=== PATIENT | male | born 1985 | race American Indian/Alaskan Native ===

== ENCOUNTER 2019-07-09 05:34 | Emergency (ER) | payer SELFPAY ==
[2019-07-09 06:14] VITALS: BP 105/73
--- NOTE | 2019-07-09 06:37 | Emergency Department Report ---
ED General Adult HPI - General Chief complaint: Pain General Stated complaint: FEELING SICK Time Seen by Provider: 07/09/19 06:32 Source: patient Mode of arrival: Ambulatory Limitations: No Limitations - History of Present Illness Initial comments: Patient is a 33-year-old male that presents emergency room with complaints of feeling sick 2 days. Patient states he has had this for about a week and a half and has been seen in 2 other hospitals for the same symptoms. Patient is also complaining of lightheadedness and near syncope. Patient denies nausea vomiting. Patient states the symptoms are intermittent. Patient complains of bilateral arm pain at times. Patient states his pain is 10 out of 10. Patient states pain is better with rest. Patient states his pain is worse with exertion. Patient denies nausea vomiting. Patient denies shortness of breath. Patient denies chest pain. -: Sudden, week(s) Location: upper extremity Radiation: non-radiation Severity scale (0 -10): 10 Quality: aching Consistency: intermittent Improves with: rest Worsens with: movement Associated Symptoms: malaise, weakness. denies: confusion, chest pain, cough, diaphoresis, fever/chills, headaches, loss of appetite, nausea/vomiting, rash, seizure, shortness of breath, syncope Treatments Prior to Arrival: none - Related Data Allergies Allergy/AdvReac Type Severity Reaction Status Date / Time shrimp Allergy Rash Verified 07/09/19 06:41 ED Review of Systems ROS: Stated complaint: FEELING SICK Other details as noted in HPI Constitutional: malaise, weakness. denies: chills, fever Eyes: denies: eye pain, eye discharge, vision change ENT: denies: ear pain, throat pain Respiratory: denies: cough, shortness of breath, wheezing Cardiovascular: denies: chest pain, palpitations Endocrine: no symptoms reported Gastrointestinal: denies: abdominal pain, nausea, diarrhea Genitourinary: denies: urgency, dysuria Musculoskeletal: denies: back pain, joint swelling, arthralgia Skin: denies: rash, lesions Neurological: weakness. denies: headache, paresthesias Psychiatric: denies: anxiety, depression Hematological/Lymphatic: denies: easy bleeding, easy bruising ED Past Medical Hx - Past Medical History Previous Medical History?: Yes Hx Asthma: Yes - Surgical History Past Surgical History?: No - Family History Family history: no significant - Social History Smoking Status: Former Smoker Substance Use Type: None ED Physical Exam - General Limitations: No Limitations General appearance: alert, in no apparent distress - Head Head exam: Present: atraumatic, normocephalic - Eye Eye exam: Present: normal appearance, PERRL Pupils: Present: normal accommodation - ENT ENT exam: Present: mucous membranes moist - Neck Neck exam: Present: normal inspection - Respiratory Respiratory exam: Present: normal lung sounds bilaterally. Absent: respiratory distress, wheezes, rales - Cardiovascular Cardiovascular Exam: Present: regular rate, normal rhythm. Absent: systolic murmur, diastolic murmur, rubs, gallop - GI/Abdominal GI/Abdominal exam: Present: soft, normal bowel sounds - Rectal Rectal exam: Present: deferred - Extremities Exam Extremities exam: Present: normal inspection - Back Exam Back exam: Present: normal inspection - Neurological Exam Neurological exam: Present: alert, oriented X3 - Psychiatric Psychiatric exam: Present: normal affect, normal mood - Skin Skin exam: Present: warm, dry, intact, normal color. Absent: rash ED Course Vital Signs 07/09/19 07/09/19 05:51 06:12 Temperature 97.7 F 98.5 F Pulse Rate 61 55 L Respiratory 16 16 Rate Blood Pressure 128/87 105/73 [Right] O2 Sat by Pulse 98 99 Oximetry - Reevaluation(s) Reevaluation #1: Evaluation done. I discussed with patient the need to follow-up with a primary care and outpatient specialists in order to manage his instead of continuing to go from ER to ER. Patient voiced understanding. No chest pain with deep breath. 07/09/19 06:32 Reevaluation #2: I went to the room discussed the results with patient and the patient has eloped. All patient's belongings are gone. 07/09/19 09:17 ED Medical Decision Making - Lab Data Result diagrams: 07/09/19 06:52 07/09/19 06:52 - EKG Data -: EKG Interpreted by Me EKG shows normal: sinus rhythm, axis, intervals, QRS complexes, ST-T waves Rate: normal - Radiology Data Radiology results: report reviewed, image reviewed CT HEAD WITHOUT CONTRAST INDICATION : MAIN: near syncope, lighthead TECH NOTE: PATIENT COMPLAINES OF HEAD HURTING X 2 DAYS. TECHNIQUE: Axial imaging performed from the skull apex through the skull base without the use of contrast. All CT scans at this location are performed using CT dose reduction employed for ALARA by means of automated exposure control. COMPARISON: None FINDINGS: Parenchyma: No acute intracranial hemorrhage or parenchymal abnormality. Ventricles: Ventricles are normal in size and appear symmetric. Soft tissues: Soft tissues including the orbits appear normal. Bones: No acute osseous abnormality. Sinuses: Sinuses and mastoid air cells are clear. IMPRESSION: Normal head CT. - Medical Decision Making She is a 33-year-old male presents emergency room with near-syncope and lighthe adedness. Patient had been seen a few other ERs for the same complaints. Patient has never followed up with a primary care. During initial exam patient was instructed to follow-up with the primary care outpatient specialist for further evaluation. Asians evaluation done here. When I went to the room to discuss the results with the patient, the patient had a low. Patient left the hospital. Patient's CT of the head negative. Patient's EKG essentially unremarkable. - Differential Diagnosis lightheadedness. Dizziness. Dehydration. Myalgia. Critical care attestation.: If time is entered above; I have spent that time in minutes in the direct care of this critically ill patient, excluding procedure time. ED Disposition Clinical Impression: Lightheadedness, Near syncope, Myalgia, Elevated CK Arm pain Qualifiers: Laterality: bilateral Qualified Code(s): M79.601 - Pain in right arm Disposition: Z-07 ELOPED Is pt being admited?: No Does the pt Need Aspirin: No Condition: Undetermined Referrals: PRIMARY CARE [Primary Care Provider] - 3-5 Days Time of Disposition: 09:18
[2019-07-09 07:06] LABS: Hematocrit 40.2 % (35.5-45.6); Hemoglobin 13.2 gm/dl (11.8-15.2); Mean Corpuscular HGB Conc 33 % (32-34); Mean Corpuscular Volume 84 fl (84-94); Platelet Count 191 K/mm3 (140-440); Red Blood Count 4.82 M/mm3 (3.65-5.03); Red Cell Distribution Width 14.9 % (13.2-15.2)
[2019-07-09 07:39] LABS: Alanine Aminotransferase 12 units/L (7-56); BUN/Creatinine Ratio 23; Blood Urea Nitrogen 16 mg/dL (9-20); Calcium 9.2 mg/dL (8.4-10.2); Hemolysis Index 5
--- NOTE | 2019-07-09 08:10 | Cat Scan Report ---
CT HEAD WITHOUT CONTRAST INDICATION : MAIN: near syncope, lighthead TECH NOTE: PATIENT COMPLAINES OF HEAD HURTING X 2 DAYS. TECHNIQUE: Axial imaging performed from the skull apex through the skull base without the use of con trast. All CT scans at this location are performed using CT dose reduction employed for SHENA by anjali miguel of automated exposure control. COMPARISON: None FINDINGS: Parenchyma: No acute intracranial hemorrhage or parenchymal abnormality. Ventricles: Ventricles are normal in size and appear symmetric. Soft tissues: Soft tissues including the orbits appear normal. Bones: No acute osseous abnormality. Sinuses: Sinuses and mastoid air cells are clear. IMPRESSION: Normal head CT. Signer Name: Lorenzo Medrano MD Signed: 07/09/2019 8:05 AM Workstation Name: [id number]
[2019-07-09] MEDS ORDERED: NACL 0.9% 1000 ML 1,000 ML IV ONE (09:01)
[2019-07-09 09:37] LABS: Amphetamine Screen,Urine PRESUMPTIVE NEGATIVE; Benzodiazepines Screen,Urine PRESUMPTIVE NEGATIVE; Cocaine Screen,Urine PRESUMPTIVE NEGATIVE; Methadone Screen,Urine PRESUMPTIVE NEGATIVE; Opiate Screen,Urine PRESUMPTIVE NEGATIVE
[2019-07-09 09:41] LABS: Bilirubin,Urine NEG (Negative); Blood,Urine NEG (Negative); Color,Urine Yellow (Yellow); Mucus,Urine 3+ /HPF; Protein,Urine <15 mg/dL mg/dL (Negative)
[2019-07-09 09:44] LABS: RBC,Urine < 1.0 /HPF (0.0-6.0)
[2019-07-09 09:56] LABS: Cannabinoid Screen,Urine PRESUMPTIVE POSITIVE
== END 2019-07-09 09:52 | disposition left against medical advice (07) ==
LOC: ED 05:34
DX: R55 Syncope and collapse (principal); R42 Dizziness and giddiness; M79.601 Pain in right arm; J45.909 Unspecified asthma, uncomplicated; Z87.891 Personal history of nicotine dependence
CPT/HCPCS: 36415; 70450; 80053; 80307; 81001; 82550; 85027; 93005; 93010; 99284

== ENCOUNTER 2019-07-11 23:17 | Emergency (ER) | payer SELFPAY ==
[2019-07-12 03:05] VITALS: BP 123/67
[2019-07-12] MEDS ORDERED: NACL 0.9% 1000 ML 1,000 ML IV ONE (07:32)
[2019-07-12] MEDS ORDERED: REGLAN IV ONE (07:32)
[2019-07-12] MEDS ORDERED: TORADOL IV ONE (07:32)
[2019-07-12] MEDS ORDERED: BENADRYL IV ONE (07:32)
--- NOTE | 2019-07-12 07:41 | Emergency Department Report ---
ED Headache HPI - General Chief Complaint: Headache Stated Complaint: HEADACHE/BODY WEAKNESS Time Seen by Provider: 07/12/19 07:31 - History of Present Illness Initial Comments: This is a 33-year-old male nontoxic, well nourished in appearance, no acute signs of distress presents to the ED with c/o of acute headache, dizziness, and body aches x1 day. Patient stated had a near syncope episode as he felt that he was going to pass out but denies any syncopal episode. Patient describes headache as diffuse with level of 8 out of 10. Patient denies thunderclap headache. Patient denies any radiation of pain. Patient denies any head trauma. Patient denies any visual changes. Patient denies worse headache. Patient stated that darkness makes headache better and bright lights make the headache worse. Patient denies any numbness, tingling, fever, chills, nausea, vomiting, chest pain, shortness of breath, stiff neck. Patient denies facial drooping or one sided weakness. Patient denies any radiation of pain. Patient denies any allergies. Timing/Duration: 24 hours Quality: mild Head Injury Location: other (diffuse) Recent Head Trauma: no recent headache/trauma Associated Symptoms: denies symptoms. denies: confusion, fatigue, facial pain, fever/chills, flushing, loss of consciousness, nausea/vomiting, nasal congestion, nasal drainage, numbness in legs/feet, rash, seizures, sinus infe ction, stiff neck, vision changes, weakness Allergies/Adverse Reactions: Allergies shrimp Allergy (Verified 07/09/19 06:41) Rash Home Medications: Ambulatory Orders Butalb/Acetaminophen/Caffeine [Fioricet 50-300-40 mg CAP] 1 cap PO Q6HR PRN #12 cap 07/12/19 ED Review of Systems ROS: Stated complaint: HEADACHE/BODY WEAKNESS Other details as noted in HPI Constitutional: denies: chills, fever Eyes: denies: eye pain, eye discharge, vision change ENT: denies: ear pain, throat pain Respiratory: denies: cough, shortness of breath, wheezing Cardiovascular: denies: chest pain, palpitations Endocrine: no symptoms reported Gastrointestinal: denies: abdominal pain, nausea, diarrhea Genitourinary: denies: urgency, dysuria Musculoskeletal: denies: back pain, joint swelling, arthralgia Skin: denies: rash, lesions Neurological: headache. denies: weakness, paresthesias Psychiatric: denies: anxiety, depression Hematological/Lymphatic: denies: easy bleeding, easy bruising ED Past Medical Hx - Past Medical History Previous Medical History?: Yes Hx Psychiatric Treatment: Yes Hx Asthma: Yes - Surgical History Past Surgical History?: No - Social History Smoking Status: Never Smoker - Medications Home Medications: Home Medications Medication Instructions Recorded Confirmed Last Taken Type Butalb/Acetaminophen/Caffeine 1 cap PO Q6HR PRN #12 cap 07/12/19 Unknown Rx [Fioricet 50-300-40 mg CAP] ED Physical Exam - General Limitations: No Limitations General appearance: alert, in no apparent distress - Head Head exam: Present: atraumatic, normocephalic - Eye Eye exam: Present: normal appearance, PERRL, EOMI - Neck Neck exam: Present: normal inspection, full ROM. Absent: tenderness, meningismus, lymphadenopathy - Respiratory Respiratory exam: Present: normal lung sounds bilaterally. Absent: respiratory distress, wheezes, rales, rhonchi, stridor, chest wall tenderness, accessory muscle use, decreased breath sounds, prolonged expiratory - Cardiovascular Cardiovascular Exam: Present: regular rate, normal rhythm, normal heart sounds. Absent: bradycardia, tachycardia, irregular rhythm, systolic murmur, diastolic murmur, rubs, gallop - GI/Abdominal GI/Abdominal exam: Present: soft, normal bowel sounds. Absent: distended, tenderness, guarding, rebound, rigid, diminished bowel sounds - Rectal Rectal exam: Present: deferred - Extremities Exam Extremities exam: Present: normal inspection, full ROM, normal capillary refill. Absent: tenderness - Back Exam Back exam: Present: normal inspection, full ROM. Absent: tenderness, CVA tenderness (R), CVA tenderness (L), muscle spasm, paraspinal tenderness, vertebral tenderness, rash noted - Neurological Exam Neurological exam: Present: alert, oriented X3, normal gait - Expanded Neurological Exam Expanded Patient oriented to: Present: person, place, time Cranial nerves: EOM's Intact: Normal, Facial Sensation: Normal Cerebellar function: Finger to Nose: Normal Upper motor neuron: Pronator Drift: Normal, Sensory Extinction: Normal Motor strength exam: RUE: 5, LUE: 5, RLE: 5, LLE: 5 Best Eye Response (Rebecca): (4) open spontaneously Best Motor Response (Rebecca): (6) obeys commands Best Verbal Response (Rebecca): (5) oriented Rebecca Total: 15 - Psychiatric Psychiatric exam: Present: normal affect, normal mood - Skin Skin exam: Present: warm, dry, intact, normal color. Absent: rash ED Course Vital Signs 07/12/19 03:02 Temperature 97.8 F Pulse Rate 60 Respiratory 20 Rate Blood Pressure 123/67 O2 Sat by Pulse 100 Oximetry - Reevaluation(s) Reevaluation #1: 07/12/19 07:39 Patient is speaking in full sentences with no signs of distress noted. ED Medical Decision Making - Lab Data Result diagrams: 07/12/19 09:06 07/12/19 09:39 - Medical Decision Making This is a 33-year-old male that presents with headache. Patient is stable and was examined by me. Patient is neurologically stable. There is no stiff neck or neck pain. Vital signs are stable. Patient is afebrile. Labs unremarkable. CT of head has been obtained and dictated by the radiologist unremarkable. Patient is notified of the CT results with no questions noted by the patient. Patient received Benadryl, Reglan, Toradol, and 1 L of normal saline which the patient stated that headache has subsided and resolved. Patient was instructed not to operate any machinery after discharged due to drowsiness of Benadryl. Patient stated that a family member will drive patient home. Patient is discharged with Fioricet. Patient was referred to Follow-up with a primary care/neurologist doctor in 3-5 days or if symptoms worsen and continue return to emergency room as soon as possible. At time of discharge, the patient does not seem toxic or ill in appearance. No acute signs of distress noted. Patient agrees to discharge treatment plan of care. No further questions noted by the patient. Critical care attestation.: If time is entered above; I have spent that time in minutes in the direct care of this critically ill patient, excluding procedure time. ED Disposition Clinical Impression: Dizziness, Near syncope Headache Qualifiers: Headache type: unspecified Headache chronicity pattern: episodic headache Intractability: not intractable Qualified Code(s): R51 - Headache Disposition: DC-01 TO HOME OR SELFCARE Is pt being admited?: No Does the pt Need Aspirin: No Condition: Stable Instructions: Acute Headache (ED), Near Syncope (ED) Additional Instructions: Follow-up with a primary care doctor in 3-5 days or if symptoms worsen and continue return to emergency room as soon as possible. Prescriptions: Butalb/Acetaminophen/Caffeine [Fioricet 50-300-40 mg CAP] 1 cap PO Q6HR PRN #12 cap PRN Reason: Pain , Severe (7-10) Referrals: PRIMARY CARE, [Primary Care Provider] - 3-5 Days GERARDO BRAUN MD [Staff Physician] - 3-5 Days [facility] [Outside] - 3-5 Days [facility] [Outside] - 3-5 Days Forms: Work/School Release Form(ED)
--- NOTE | 2019-07-12 08:26 | Cat Scan Report ---
CT head without contrast INDICATION : Headache with syncope TECHNIQUE: Axial imaging performed from the skull apex through the skull base without the use of con trast. All CT examinations performed at this facility utilize dose modulation, iterative reconstruct ion or weight-based dosing, when appropriate, to reduce radiation dose to as low as reasonably achiev able. COMPARISON: None FINDINGS: No acute intracranial hemorrhage or parenchymal abnormality. Ventricles are normal in si ze and appear symmetric. Soft tissues including the orbits appear normal. No acute osseous abnorm ality. Sinuses and mastoid air cells are clear. IMPRESSION: No acute intracranial abnormality. Signer Name: Marcos Sandoval MD Signed: 07/12/2019 8:22 AM Workstation Name: [id number]
[2019-07-12 09:00] LABS: BUN/Creatinine Ratio 13; Blood Urea Nitrogen 8 mg/dL (9-20); Hemolysis Index 299
[2019-07-12 09:17] LABS: Eosinophils # (Auto) 0.1 K/mm3 (0.0-0.4); Eosinophils % (Auto) 3.1 % (0.0-4.3); Hematocrit 40.8 % (35.5-45.6); Hemoglobin 13.6 gm/dl (11.8-15.2); Lymphocytes # (Auto) 1.4 K/mm3 (1.2-5.4); Lymphocytes % (Auto) 36.3 % (13.4-35.0); Mean Corpuscular HGB Conc 33 % (32-34); Mean Corpuscular Volume 85 fl (84-94); Monocytes # (Auto) 0.6 K/mm3 (0.0-0.8); Monocytes % (Auto) 14.5 % (0.0-7.3); Platelet Count 199 K/mm3 (140-440); Red Blood Count 4.83 M/mm3 (3.65-5.03); Red Cell Distribution Width 15.1 % (13.2-15.2)
== END 2019-07-12 10:55 | disposition home or self-care (01) ==
LOC: ED 23:17
DX: R42 Dizziness and giddiness (principal); R55 Syncope and collapse; R51 Headache; J45.909 Unspecified asthma, uncomplicated; Z91.013 Allergy to seafood
CPT/HCPCS: 36415; 70450; 80048; 84132; 85025; 96361; 96374; 96375; 99284; J1200; J1885; J2765; J7030

== ENCOUNTER 2019-07-16 23:59 | Emergency (ER) | payer SELFPAY ==
[2019-07-17 08:44] VITALS: BP 121/69
--- NOTE | 2019-07-17 08:55 | Emergency Department Report ---
ED General Adult HPI - General Chief complaint: Dizziness Stated complaint: DIZZINESS,LIGHT HEADED, BODY WEAKNESS Time Seen by Provider: 07/17/19 07:45 Source: patient Mode of arrival: Ambulatory Limitations: No Limitations - History of Present Illness Initial comments: 34-year-old [place] male department complaining of a few day history of waxing and waning dizziness and lightheadedness. States that he was at home and the room where they were burning some incense and after that had occurred. The sensations had begun. Stated that this was also associated with some heart fluttering and nausea. Denies any chest pain or any syncope reports no hemoptysis, hematemesis or hematochezia, no fever, chills, sweats. Radiation: non-radiation Consistency: constant Improves with: none Worsens with: none Associated Symptoms: denies: chest pain, cough, diaphoresis, malaise, nausea/vomiting, shortness of breath, syncope, weakness Treatments Prior to Arrival: none - Related Data Previous Rx's Medication Instructions Recorded Last Taken Type Butalb/Acetaminophen/Caffeine 1 cap PO Q6HR PRN #12 cap 07/12/19 Unknown Rx [Fioricet 50-300-40 mg CAP] Allergies Allergy/AdvReac Type Severity Reaction Status Date / Time shrimp Allergy Rash Verified 07/09/19 06:41 ED Review of Systems ROS: Stated complaint: DIZZINESS,LIGHT HEADED, BODY WEAKNESS Other details as noted in HPI Comment: All other systems reviewed and negative ED Past Medical Hx - Past Medical History Previous Medical History?: Yes Hx Psychiatric Treatment: Yes (Bipolar) Hx Asthma: Yes - Surgical History Past Surgical History?: No - Social History Smoking Status: Never Smoker Substance Use Type: None - Medications Home Medications: Home Medications Medication Instructions Recorded Confirmed Last Taken Type Butalb/Acetaminophen/Caffeine 1 cap PO Q6HR PRN #12 cap 07/12/19 Unknown Rx [Fioricet 50-300-40 mg CAP] ED Physical Exam - General Limitations: No Limitations General appearance: alert, in no apparent distress - Head Head exam: Present: atraumatic, normocephalic - Eye Eye exam: Present: normal appearance, PERRL, EOMI Pupils: Present: normal accommodation - ENT ENT exam: Present: normal exam, normal orophraynx, mucous membranes moist, TM's normal bilaterally - Neck Neck exam: Present: normal inspection - Respiratory Respiratory exam: Present: normal lung sounds bilaterally. Absent: respiratory distress - Cardiovascular Cardiovascular Exam: Present: regular rate, normal rhythm. Absent: systolic murmur, diastolic murmur, rubs, gallop - GI/Abdominal GI/Abdominal exam: Present: soft, normal bowel sounds - Rectal Rectal exam: Present: deferred - Extremities Exam Extremities exam: Present: normal inspection - Back Exam Back exam: Present: normal inspection - Neurological Exam Neurological exam: Present: alert, oriented X3 - Psychiatric Psychiatric exam: Present: normal affect, normal mood - Skin Skin exam: Present: warm, dry, intact, normal color. Absent: rash ED Course Vital Signs 07/17/19 07/17/19 00:30 08:42 Temperature 97.7 F 97.9 F Pulse Rate 55 L 54 L Respiratory 18 18 Rate Blood Pressure 106/60 Blood Pressure 121/69 [Right] O2 Sat by Pulse 100 100 Oximetry ED Medical Decision Making - Medical Decision Making 33-year-old -[place] male male presents to the emergency department complaining of palpitations, presyncope, lightheadedness, weakness, fatigue often. States that most recently occurred when he was around some incidental small dizzy. Denies any illicit drug use. Reports no loss of bowel or bladder. No chest painno hemoptysis, no significant symptoms. Discussed with him in the to perform some testing and emergency department to delineate the nature of his symptomology however, he refused. Try to encourage him to reconsider. He understands the risks included involving , however, still refuses test and wanted to tell his story me to tell him why he was having the symptoms. He is ambulatory and in no acute distress of sound judgment. Alert and oriented requesting food and water Critical care attestation.: If time is entered above; I have spent that time in minutes in the direct care of this critically ill patient, excluding procedure time. ED Disposition Clinical Impression: Dizziness Disposition: DC-07 LEFT AGAINST MED ADVICE Is pt being admited?: No Does the pt Need Aspirin: No Condition: Stable Instructions: Lightheadedness (ED), Dizziness (ED) Referrals: [facility] [Provider Group] - 3-5 Days [facility]IMARY [facility],MD [Primary Care Provider] - 3-5 Days
== END 2019-07-17 09:11 | disposition left against medical advice (07) ==
LOC: EEVIPCON 23:59 → ED 23:59
DX: R42 Dizziness and giddiness (principal); R00.2 Palpitations; R55 Syncope and collapse; R53.1 Weakness; R53.83 Other fatigue